=== PATIENT | female | born 1975 | race Hispanic/Latino ===

== ENCOUNTER 2024-02-07 09:27 | Emergency (ER) | payer SELFPAY ==
[~2024-02-07] VITALS: Ht 165.1 cm; Wt 72.6 kg
[~2024-02-07 09:27] MED LIST: SUMATRIPTAN SUC25 MG PO
[2024-02-07 09:30] VITALS: TEMP 98.1
[2024-02-07] MEDS ORDERED: HYDROMORPHONE 1MG/1ML INJ IV STA (10:03)
[2024-02-07 10:15] VITALS: PULSE 72; RESP 16
[2024-02-07] MEDS ORDERED: METOCLOPRAMIDE HCL 10 MG/2ML VIAL IV ONE (10:15)
[2024-02-07] MEDS ORDERED: DIPHENHYDRAMINE HCL INJ 50 MG/ML VIAL IV ONE (10:15)
[2024-02-07] MEDS: ACETAMIN/BUTALBITAL/CAFFEINE TAB PO ONE (10:50)
[2024-02-07] MEDS: METOCLOPRAMIDE HCL 10 MG/2ML VIAL IM ONE (12:31)
[2024-02-07] MEDS: DIPHENHYDRAMINE HCL INJ 50 MG/ML VIAL IM ONE (12:32)
[2024-02-07 12:41] LABS: BASOPHILS # (AUTO) 0.1 (0.0-0.1); EOSINOPHILS # (AUTO) 0.2 (0.0-0.4); EOSINOPHILS % 3.1 % (0.0-6.0); HEMATOCRIT 42.9 % (34.2-44.1); HEMOGLOBIN 13.7 g/dL (12.0-16.0); LYMPHOCYTES # (AUTO) 2.3 (1.0-3.2); MEAN CORPUSCULAR HEMOGLOBIN 28.3 pg (28-32); MEAN CORPUSCULAR HGB CONC 31.9 g/dL (31-35); MEAN CORPUSCULAR VOLUME 88.6 fL (81-99); MONOCYTES # (AUTO) 0.5 (0.2-0.8); MONOCYTES % 6.5 % (4.4-11.3); NEUTROPHILS # (AUTO) 4.3 (2.1-6.9); NEUTROPHILS % 58.1 % (38.7-80.0); PLATELET COUNT 277 x10e3/uL (140-360); RED BLOOD COUNT 4.84 x10e6/uL (3.6-5.1); RED CELL DISTRIBUTION WIDTH 17.8 % (11.7-14.4); WHITE BLOOD COUNT 7.36 x10e3/uL (4.8-10.8)
[2024-02-07] MEDS: SODIUM CHLORIDE 0.9% 1000ML 1,000 ML IV STA (12:52)
[2024-02-07 13:05] LABS: ALANINE AMINOTRANSFERASE 14 IU/L (0-55); ALBUMIN 4.1 g/dL (3.5-5.0); ALKALINE PHOSPHATASE 73 IU/L (40-150); ANION GAP 15.2 mmol/L (8-16); BILIRUBIN,TOTAL 0.3 mg/dL (0.2-1.2); BLOOD UREA NITROGEN 12 mg/dL (7-26); BUN/CREATININE RATIO 14 (6-25); CALCIUM 9.6 mg/dL (8.4-10.2); CARBON DIOXIDE 19 mmol/L (22-29); CHLORIDE 109 mmol/L (98-107); CREATININE, SERUM 0.85 mg/dL (0.57-1.11); EST GLOMERULAR FILTRATION RATE 85 ML/MIN (>=60); GLUCOSE 87 mg/dL (74-118); MAGNESIUM 1.7 MG/DL (1.3-2.1); POTASSIUM 4.2 mmol/L (3.5-5.1); SODIUM 139 mmol/L (136-145); TOTAL PROTEIN 8.2 g/dL (6.5-8.1)
[2024-02-07] MEDS ORDERED: FIORICET 50-301 EACH PO (13:52)
[2024-02-07] MEDS ORDERED: ONDANSETRON ODT4 MG PO (13:52)
[2024-02-07 14:36] VITALS: BP 135/96; PULSE 62; RESP 16; O2SAT 100
== END 2024-02-07 14:31 | disposition home or self-care (01) ==
LOC: ER 09:30
DX: G43.909 Migraine, unspecified, not intractable, without status migrainosus (principal)
CPT/HCPCS: 36415; 80053; 83735; 84702; 85025; 99283; J1200; J2765